=== PATIENT | female | born 1935 | race Caucasian/White ===

== ENCOUNTER 2023-12-17 06:34 | Inpatient (IN) | payer MEDICARE, SELFPAY ==
[2023-12-09 11:55] VITALS: BMI 22.4
[2023-12-09 13:00] LABS: % Basophils 1.3 % (0-2); % Eosinophils 2.9 % (0-6); % Immature Granulocytes 0.2 % (0-0.5); % Monocytes 9.9 % (1.7-9.3); % Neutrophils 64.7 % (42.2-75.2); Absolute Basophils 0.1 10^3/uL (0-0.2); Absolute Eosinophils 0.2 10^3/uL (0-0.7); Absolute Lymphocytes 1.2 10^3/uL (1.2-3.4); Absolute Monocytes 0.6 10^3/uL (0.1-0.6); Absolute Neutrophils 3.6 10^3/uL (1.4-6.5); Hematocrit 39.8 % (37.0-47.0); Hemoglobin 13.5 g/dL (12.0-16.0); Mean Corp Hgb Conc. 33.9 g/dL (33.0-37.0); Mean Corpuscular Hgb 32.7 pg (27.0-31.0); Mean Corpuscular Volume 96.4 fL (81.0-99.0); Mean Platelet Volume 12.5 fL (7.4-10.4); Nucleated Red Blood Cells % 0 %; Platelet Count 119 10^3/uL (130-400); Red Blood Cell Count 4.13 10^6/uL (4.20-5.40); Red Cell Dist. Width 12.4 % (11.5-14.5); White Blood Cell Count 5.6 10^3/uL (4.8-10.8)
[2023-12-09 13:02] LABS: Urine Albumin Negative (Neg - Trace); Urine Bilirubin Negative (Negative); Urine Character Very Cloudy (Clear); Urine Color Yellow; Urine Glucose Negative (Negative); Urine Ketone Negative (Negative); Urine Leukocyte Negative (Negative); Urine Nitrite Negative (Negative); Urine Occult Blood Negative (Negative); Urine Specific Gravity 1.015 (<1.030); Urine Urobilinogen Negative (Neg - 1+)
[2023-12-09 13:18] LABS: ALT (SGPT) 17 U/L (0-35); AST (SGOT) 23 U/L (14-36); Albumin 4.5 g/dl (3.5-5.0); Alkaline Phosphatase 85 U/L (38-126); Blood Urea Nitrogen 16 mg/dl (7-17); Calcium 9.6 mg/dl (8.4-10.2); Carbon Dioxide 31 mmol/L (22-30); Chloride 106 mmol/L (98-107); Direct Bilirubin 0.5 mg/dl (0.0-0.4); Estimated Creatinine Clearance 39 ml/min; Glucose 85 mg/dl (70-99); Sodium 140 mmol/L (135-145); Total Bilirubin 0.6 mg/dl (0.2-1.3); Total Protein 7.7 g/dl (6.3-8.2); eGFR > 60.00
--- NOTE | 2023-12-09 13:21 | CM ---
Met with Mrs. Paige and her daughter in [facility]. She states prior to admission she resides alone in an apartment at [facility]. She has an elevator to get to her apartment. She states she has been there for four
years. She states prior to admission she was independent with ambulation and adls. She states she does not have any DME in the home. She states she does not have a prescription plan and uses [facility]. Her daughter states she will stay
with her one night when she goes home. The discharge plan is to return home with her daughter staying with er a night and a home visit by the Cardiothoracic Transitional Care Nurse when medically stable.
We reviewed pre-op and post-op routines. We reviewed the shower instructions. She has the soap, written instructions and the TAVR Educational Booklet. We also reviewed restrictions including driving and lifting restrictions. We discussed a home
visit by the Cardiothoracic Transitional Care Nurse. She is agreeable to a home visit. The plan is for TAVR on , 12/17/23.
[2023-12-09 13:22] LABS: PT 13.2 Sec (11.4-14.6)
[2023-12-09 13:23] LABS: APTT 27.6 Sec (23.4-35.0)
[2023-12-09 13:27] LABS: NT-proBNP 360 pg/ml
[2023-12-09 14:04] LABS: Glycohemoglobin (HgbA1c) 5.6 % (4.0-5.6)
--- NOTE | 2023-12-09 14:43 | W.PN.UPDATE ---
Update Note
Progress Note Update
Patient seen and assessed in pre-admission testing. No new complaints. Reviewed pre-procedure instructions. Will remain on /Plavix and not stop prior to TAVR on 12/17. She will take her ASA and Plavix prior to her 5:30am arrival. She is aware she
will receive a call Thursday to go over any questions and confirm arrival time. Allowed for and answered questions.
[2023-12-17] VITALS (16 sets, daily range): BP systolic 99–139; BP diastolic 45–77; BMI 22.8
--- NOTE | 2023-12-17 09:28 | W.CVOR.SURPR ---
CVOR Surgeon Immed Pre Op
-
I have examined this patient prior to performance of the scheduled procedure.
The patient's condition is unchanged from the time of the dictated/written History and
Physical and the patient is able to undergo the scheduled procedure.
TF TAVR. Full Rescue.
[2023-12-17] MEDS: ZINACEF 1500 MG IV ×2 (10:00→13:54)
[2023-12-17] MEDS: STERILE WATER FOR INJECTION 16 ML IV ×2 (10:00→13:54)
[2023-12-17 11:00] LABS: ACT-LR - POC 279 Seconds (116-155)
--- NOTE | 2023-12-17 11:27 | W.PN.UPDATE ---
Update Note
Progress Note Update
Reviewed Ms. Paige with the heart team in the preTAVR SDM meeting and confirmed 23 mm S3 via left transfemoral access. Patient will resume aspirin and plavix post TAVR. LVEDP 31mmHg. #23 mm S3 (serial# [id number]) successfully deployed via left TF
access. Post implant MG 7 mmHg.
--- NOTE | 2023-12-17 11:37 | W.PN.CT.SURG ---
CT Surgery Operative Note
-
OPERATIVE REPORT
Preoperative Diagnosis: Severe aortic valve stenosis, symptomatic
Postoperative Diagnosis: Same
Procedure(s) Performed: Left trans femoral TAVR with a 23 mm Laughlin TAVR valve
Date of Procedure: 12/17/2023
Comorbidities:
1. Severe aortic stenosis, symptomatic
2. Acute on chronic congestive heart failure, LVEDP pre-TAVR was 31 mmHg
Cardiac Surgeon: Jono Sosa MD, MS
Parts Representative: Solange Schmidt MD
Anesthesia: Conscious Sedation and Local Analgesia
EBL: 100cc
Products: none
Implant: 23 mm Laughlin TAVR valve, SN: [id number]
Indication(s) for Procedures: 88-year-old female with symptomatic severe aortic stenosis. CT-TAVR protocol revealed acceptable anatomy for TAVR access and implantation.
Start time: 1021hrs
Deployment time: 1100hrs
End time: 1115hrs
Radiation Dose (mGy): 73.92
DAP (cm2.Gy): 10.0778
Fluoroscopy time (minutes): 10.7
Contrast volume (ml): 100
TAVR gradient (mmHg): 7mmHg
Protamine Dose: 30mg
Final Valve Positionin/10
Findings: Preoperative LVEF was 60% and was 60% following TAVR without inotropic support. Function was overall normal without regional wall motion abnormalities or dyskinesia. The aortic valve was well seated without detectable PVL and mean gradient
across the new valve was 7mmHg. following deployment of the valve there is a short period of pacing requirement as the patient was junctional rhythm in the 40s. She then improved to Wenckebach heart block and then regained sinus rhythm by the end
of the case. LVEDP measurements pre-TAVR were 31 to 33 mmHg indicating acute on chronic congestive heart failure and volume overload. Lasix will be given postoperatively in the ICU setting. There was successful placement of 23 mm TAVR valve
without acute complications.
Access:
1. Device -left common femoral artery, perclose x 2
2. Pigtail - right common femoral artery + 6Fr Angioseal
3. Transvenous Pacer - right common femoral vein
Description of Procedure: The patient was taken to the medical laboratory technicians. Their identity and procedure to be performed were verified and they were positioned supine on the medical laboratory technicians table. Induction via conscious sedation. The patient was then prepped and
draped from chin to thigh in a sterile fashion. A preoperative time-out was performed with all members of the team present. Arterial and venous access was performed using fluoroscopy and ultrasound guidance with micropuncture and Seldinger
technique. Two perclose devices were used on the device side followed by access to the aorta with a stiff wire to facilitate E-sheath placement. Heparin was given. A stiff straight wire and AL-1 catheter was used to cross the aortic valve. An LVEDP
was measured here. The stiff wire was exchanged for an extra stiff coiled tip wire. The valve was prepped and mounted on to the device carrier. An ACT of >250 was achieved. We verified x 3 that the valve was mounted in the correct orientation with
the skirt of the valve directed toward the tip of the device carrier. We advanced the device into the descending thoracic aorta where the valve was them mounted onto the balloon under fluoroscopy. The device was flexed and advanced over the arch
into the root and positioned across the aortic valve. Contrast fluoroscopy was used to visualize the prosthesis across the valve and to guide positioning. A pigtail catheter in the RCC as used as a guide. We aimed to have the bottom of the device
marker at the annular hinge point. The device sheath was pulled back. We performed a quick pre-deployment time out. The pacer was turned on and had capture. Blood pressure fell accordingly, angiography was done to verify the intended final placement
and the valve was deployed with 5 seconds of rapid pacing to nominal volume. The balloon was deflated and the pacer was turned off. We had recovery of vitals. The device carrier was unflexed and positioned back in the descending thoracic aorta. A
transthoracic echocardiogram was performed. The device was removed from the E-Sheath maintaining wire access followed by removal of the E-sheath as we cinched down the perclose devices. There was acceptable hemostasis. The pigtail was withdrawn into
the descending/abdominal and completion aortogram with runoff run-off angiography was performed. There was no stenosis or dissection of bilateral iliofemoral systems. There was acceptable hemostasis of bilateral groins and manual pressure was held
following wire removal. Low dose protamine was administered after checking another ACT.
All instrument, sponge, and needle counts were confirmed to be correct x 2 at the end of the operation. The patient was transferred to the cardiac intensive care unit in stable condition.
I, Dr. Jono Sosa, was present, scrubbed for, and performed all critical elements of this procedure.
Jono Sosa MD
Cardiothoracic Surgeon
[facility]
This operative dictation was created using the [email or web address] dictation system. Please excuse any grammatical, typographical, or 'sound alike' errors
--- NOTE | 2023-12-17 11:59 | ITS.CL.TAVR ---
Websphere Architect - TAVR Report
TAVR PRocedure
Procedure Report:
TRANSCATHETER AORTIC VALVE REPLACEMENT
Date of Procedure: December 17, 2023
Referring: Drs. Laron Coughlin and Jon Earl
Operators: Drs. Solange Schmidt and Jono Sosa
PROCEDURE PERFORMED:
1. Successful placement of 23 mm Laughlin Fay S3 aortic valve via left common femoral approach.
PREPROCEDURE NYHA CLASS: II
DESCRIPTION OF PROCEDURE: The patient was referred for assessment of severe symptomatic aortic stenosis and following a comprehensive evaluation it was felt that transcatheter aortic valve replacement (TAVR) would be the most appropriate treatment.
Informed consent was obtained prior to the procedure. A 'time-out' was called and the procedural plan was verbally confirmed by anesthesia, surgery, perfusion, and lab tester staff.
Arterial and venous access site were obtained in the right common femoral artery and vein using ultrasound guidance and micropuncture technique. 6 Fr. sheaths were inserted.
A 5 Fr. transvenous pacing wire was advanced to the right ventricle where excellent pacing thresholds were obtained.
A 5 Fr. pigtail catheter was then advanced to the proximal ascending aorta / right aortic cusp where angiography was performed in multiple angles to define the co-planar angle that was most appropriate valve deployment (FONTANA 4/ CAU 11).
Ultrasound guidance was then used to obtain arterial access in the left common femoral artery and a 8 fr. sheath was inserted. Angiography was performed and the arteriotomy site appeared appropriate for preclosure with two Perclose devices. An 8
Fr sheath was then inserted back into the common femoral artery over a J-tipped guidewire. An AL1 catheter was positioned in the proximal descending aorta. An Amplatz extra-stiff 0.035' J-tip wire was inserted to provide extra-support to
facilitate the Laughlin eSheath delivery. The 16 Fr. Laughlin eSheath was successfully advanced in the descending thoracic aorta.
An AL1 catheter was advanced through the Laughlin eSheath over a 0.035' J-tip guide wire. The AL1 catheter was positioned just above the aortic valve. A 0.035' Straight tip wire probed the aortic valve and crossed the stenotic leaflets. The AL1
was then advanced to the mid left ventricle. Invasive left ventricular end-diastolic pressure was noted to be elevated at 31 mmHg. An Amplatz Extra-stiff wire with a generous curved tip was then positioned in the left ventricular apex. A 23 mm
Laughlin Fay S3 valve was brought to the table and the orientation of the valve on the balloon delivery system was confirmed by all operators. The Fay S3 valve was advanced through the eSheath and into the proximal descending thoracic aorta.
The Fay S3 valve was centered on the delivery balloon and the entire system was retroflexed as it crossed the aortic arch. The Fay S3 delivery system was then advanced across the stenotic valve and the 23 mm Fay S3 valve was deployed
during rapid pacing. The valve deployment was uneventful. Transthoracic echocardiographic images post valve deployment revealed minimal aortic insufficiency with excellent position of the aortic prosthesis. Telemetry showed transient 2:1 AV block
post valve deployment however that resolved by the end of the case and she was in normal sinus rhythm.
The Laughlin balloon and delivery system were then removed. The Laughlin sheath was removed and the Perclose knots were advanced to the arteriotomy site resulting in excellent hemostasis.
Fluoro Time: 10.7 min, Dose: 73.9 mGy, DAP : 10.1 Gy.cm2
CONCLUSIONS:
1. Severe symptomatic aortic stenosis. Successful deployment of a 23 mm Fay S3 valve with minimal aortic insufficiency post procedure
2. Successful arteriotomy closure over the left common femoral artery with 2 Perclose devices. 6 Togolese Angio-Seal for successful hemostasis over the right common femoral artery.
3. Acute on chronic diastolic heart failure, LVEDP elevated at 31 mmHg.
Copy to: Laron Coughlin and Jon Earl
Solange Schmidt MD, [facility], [facility]
[2023-12-17] MEDS: LASIX 20 MG IV (12:20)
--- NOTE | 2023-12-17 14:00 | PTCARENOTE ---
received patient from recyclable products sorter recovery post TAVR. Drowsy but arousable and oriented. SR. HR 70s. EKG done. R groin sites changed by umer Dougherty. Bladder scanned for 1000. Straight cathed for 1000mLs. Pure wick applied. Pulses palpable. Diego
groin sites stable. RA. 97%. will continue to monitor. neice at bedside and updated.
--- NOTE | 2023-12-17 14:32 | CM ---
Addendum entered by CRISTA Singh 12/17/23 15:02:
CM met w/ patient's niece/POA at bedside. Introduced CM, explained role.
Reviewed DC plan.
Niece intends to stay with patient temporarily upon DC.
Will cont. to follow.
Original Note:
Patient in OR today for planned TAVR procedure.
Reviewed initial assessment. Pt. resides alone in apartment at [facility]. Functionally, patient is independent with ADLs, mobility without any AD.
Anticipated DC plan is for home w/ CT Transitional Care RN.
CM to follow.
--- NOTE | 2023-12-17 16:02 | PTCARENOTE ---
patient reported seeing 'spots' intermittently since her arrival to unit. ALBIN Oliver notified and at bedside assessing patient. Dr Sosa notified. Neuro exam done. Eye gtts ordered. no additional orders at this time.
[2023-12-17] MEDS: ZINACEF 750 MG IV (16:38)
[2023-12-17] MEDS: STERILE WATER FOR INJECTION 8.30000000000000071 ML IV (16:38)
[2023-12-17] MEDS: VIBRAMYCIN 100 MG PO (22:39)
[2023-12-17] MEDS: ATIVAN 0.5 MG PO (23:14)
--- NOTE | 2023-12-17 23:33 | PTCARENOTE ---
received patient at the change of shift. AAOx3. [place]BA. neuro intact. patient denies any floaters, 'spots' that she had post op. HR SR with a BBB 70s-80s. lopressor placed on hold per Crista TALAMANTES. bp stable. ambulating to the bathroom with a standby
assist. b/l groin sites intact, soft. palpable pulses/no edema. urinating in the bathroom. reviewed plan of care with the patient and verbalized understanding. call hinton in reach. calls appropriately.
[2023-12-18 03:22] VITALS: BP 131/53
[2023-12-18 03:54] LABS: Hematocrit 34.5 % (37.0-47.0); Hemoglobin 11.9 g/dL (12.0-16.0); Mean Corp Hgb Conc. 34.5 g/dL (33.0-37.0); Mean Corpuscular Hgb 32.9 pg (27.0-31.0); Mean Corpuscular Volume 95.3 fL (81.0-99.0); Red Blood Cell Count 3.62 10^6/uL (4.20-5.40); Red Cell Dist. Width 12.7 % (11.5-14.5); White Blood Cell Count 6.3 10^3/uL (4.8-10.8)
[2023-12-18 04:11] LABS: Blood Urea Nitrogen 17 mg/dl (7-17); Calcium 8.6 mg/dl (8.4-10.2); Carbon Dioxide 28 mmol/L (22-30); Chloride 108 mmol/L (98-107); Estimated Creatinine Clearance 33 ml/min; Glucose 93 mg/dl (70-99); Potassium 3.9 mmol/L (3.5-5.1); Sodium 138 mmol/L (135-145); eGFR > 60.00
--- NOTE | 2023-12-18 05:36 | W.PN.CT ---
Today's Communication / Plan
-
-pod #1
-new 1st degree and RBBB postop- both resolved - held Lopressor - ? restart
-brief SVT early post TAVR. In nsr 70s overnight. No mayela or pauses
-diuresed with 20 iv Lasix 12/17 (UO 900+)
-follow platelets - pending (chronic thrombocytopenia)
-Echo today
-current meds (ASA, Plavix, Lipitor)
-encourage IS, OOB, ambulate
-likely d/c soon
Assessment / Plan
-
- Severe symptomatic AV stenosis - s/p Left trans femoral TAVR with a 23 mm Laughlin TAVR valve on 12/17/23, pod #1
- Acute on chronic diastolic congestive heart failure, LVEDP pre-TAVR was 31 mmHg
- Short period of pacing requirement as the patient was in junctional rhythm in the 40s.� She then improved to Wenckebach heart block and then regained sinus rhythm by the end of the case.��
- Preop and postop LVEF was 60% without inotropic support, no regional wma or dyskinesia. The aortic valve was well seated without detectable PVL and mean gradient across the new valve was 7mmHg.�
- CAD - s/p RON to LAD on 11/11/23- on ASA and Plavix preop
- HTN/HLD
- Moderate MR
- OA R knee
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
- Chronic thrombocytopenia
- Acute postop 1st degree AVB and RBBB- both resolved
- Acute postop brief SVT 150s
Discussed patient care with: Nursing and Care Team
Subjective
-
Date of Service: December 17, 2023
Objective Data
-
Lab Results
12/09/23 12:07
12/09/23 12:07
PT 13.2 Sec (11.4-14.6) 12/09/23 12:07
INR 1.00 12/09/23 12:07
APTT 27.6 Sec (23.4-35.0) 12/09/23 12:07
Vital Signs
Vital Signs
Temp Pulse Resp BP Pulse Ox
98.0 F 77 16 103/59 95
12/17/23 20:00 12/17/23 20:45 12/17/23 20:00 12/17/23 20:03 12/17/23 20:00
CT Intake/Output/Weight
12/17/23 12/17/23 12/18/23
06:59 18:59 06:59
Output Total 900 / 900
Balance -900 / -900
SaO2: 95
Physical Exam
-
General: Awake and AOx3
Cardiovascular: Regular rate & rhythm, No Murmurs and No Rub
Respiratory: Clear
Incision: Other (groins are cdi, soft, nontender, no hematoma b/l)
Extremities: No Edema (2+ DP b/l)
Data Reviewed
-
Lab Results: Results Reviewed
Medications: Active Meds Reviewed
Chest X-Ray: Report Reviewed and Image Reviewed
ECG: Report Reviewed and Image Reviewed
--- NOTE | 2023-12-18 05:43 | PTCARENOTE ---
patient slept well overnight. SR 70s, resolved BBB. bp stable. neuro intact. b/l groins intact, palpable pulses. chest xray completed.
[2023-12-18 06:58] LABS: Mean Platelet Volume 12.1 fL (7.4-10.4); Platelet Count 97 10^3/uL (130-400)
--- NOTE | 2023-12-18 07:25 | W.PN.ANS.POP ---
Anesthesia Post Operative
- Anesthesia Post Op Note
Vital Signs Stable-See Nursing Note: Yes
Airway Patent: Yes
Adequate Pain Control: Yes
Change in Mental Status: No
Current Postoperative Nausea & Vomiting: No
Anesthesia Complications: No
General Anesthetic Recall: No
Unplanned Admission: No
Post Op Hydration Adequate: Yes
[2023-12-18 07:46] VITALS: BP 121/55
[2023-12-18 07:49] VITALS: BP 121/55
--- NOTE | 2023-12-18 07:49 | W.DCSUMMARY ---
Discharge Summary
Discharge Data
Date of Admission: 12/17/23
Date of Discharge: 12/18/23
Total time spent discharging patient (in min): 30
-
Pending Results: No
Hospital Course
Primary care physician:
Dr. Shilpa Leone MD.
Outpatient engineering technician parking:
Dr. Laron Coughlin MD.
Inpatient consultants:
[facility] Cardiology
Procedures:
1. �Left trans femoral transcatheter aortic valve with a 23 mm Laughlin valve
Primary Diagnosis:
1. �Severe aortic stenosis, symptomatic
2. Acute on chronic diastolic congestive heart failure, left ventricular end-diastolic pressure pre-transcatheter aortic valve replacement was 31 mmHg
Secondary Diagnoses:
1. Coronary artery disease status post drug-eluting stent to the left anterior descending coronary artery (11/11/23)
2. Chronic infection prosthetic right hip joint
3. Osteoarthritis of the right knee
4. Hyperlipidemia
5. Episodes of near syncope
6. Dyspnea upon exertion
HPI:
Patient is an extremely pleasant 88-year-old female with a history of severe symptomatic aortic stenosis. Patient has been experiencing episodes of near syncope and dyspnea upon exertion. She was seen as an outpatient in consultation by
Dr. Sheila MD. as well as the TAVR team. She was deemed an appropriate candidate to undergo the procedure described above.
Hospital course:
Patient presented to [facility] electively as an outpatient 12/17/2023 to undergo left transfemoral transcatheter aortic valve replacement with a #23 Laughlin valve. Patient tolerated procedure well. Procedure was performed under conscious
sedation. She was transported from the Manager Flight to the interventional unit where she underwent her postoperative recovery. Patient had no complications postoperatively. She did not need any arterial or venous sheaths or temporary pacing wires.
Postoperative EKG revealed normal sinus rhythm (65 bpm) with a new right bundle branch block. Beta-blockade was held that evening. She was diuresed with 20 mg of IV Lasix due to an elevated left ventricular end-diastolic pressure status post
procedure.
Postoperative day #1 she had no complications overnight. She was ordered to continue aspirin and Plavix. She was seen on morning rounds by attending physician. Groins and abdomen were soft and nontender to palpation. Morning EKG right bundle
branch block resolved. She was sinus rhythm at 79 bpm. Postop day #1 echocardiogram revealed a left ventricular ejection fraction of 70%. Aortic valve revealed normal functioning 23 mm Laughlin JOSIE 3 transcatheter aortic valve with peak
gradient of 18 mmHg, and mean gradient of 9 mmHg. No aortic insufficiency was visualized. When compared to her prior echo on 12/17/23 no significant change was found. Patient's beta-melissa dose was decreased from Lopressor 25 mg twice daily to
12.5 mg twice daily per cardiology. She will be sent home with a rhythm star heart monitor per request of Cardiology/CT Surgery. Patient was medically cleared for discharge to home.
Home medication changes:
Take Acetaminophen 650 mg Q6H PRN for fever and pain control.
Stop Metoprolol 25 mg BID per Cardiology
Start Metoprolol 12.5 mg BID at lower dose per Cardiology
Please resume all other home medications as previously taking.
Please cc copy to the following providers:
Primary care physician Dr. Shilpa Leone MD.
Cardiology Dr. Laron Coughlin MD.
Discharge Plan
-
Patient Disposition: Home (Routine Discharge)
Discharge Diagnosis/Procedures: TF-TAVR
Condition: Fair
Diet: 2 Gram Sodium
Activity: As tolerated
Driving Restrictions: No driving for 1 week
Bathing Restrictions: OK to Shower
Others Tests: Please call Dr. Coughlin' office to schedule a follow up echocardiogram for 30 days after your TAVR.
Other Services: Cardiac Rehab
Wound Care: Please do not apply lotions, creams or powders to groin areas. Please monitor groins for increased pain, swelling, redness or drainage. Call your doctor if any occur.
Specialty Instructions: Weigh Daily- Call MD for wt gain/loss 3 lbs overnight/5 lbs in 1 week
Referrals:
CT Transitional Care Nurse [Outside] - in one to two days (The Cardiothoracic Transitional Care Nurse will call you to set up a visit in 1-2 days.)
Laron Coughlin MD [Active] - 01/07/24 11:15 am
Shilpa Leone DO [Family Provider] -
Prescriptions:
New
acetaminophen 325 mg Tablet
650 mg PO Q4HPRN PRN (Reason: DURAN, mild pain, or fever >101F) Qty: 0 0RF
Rx Instructions:
Please purchase over the counter
metoprolol tartrate 25 mg Tablet
12.5 mg PO BID Qty: 30 1RF
Continued
atorvastatin 10 mg Tablet
10 mg PO DAILY
calcium carbonate [Calcium 600] 600 mg calcium (1,500 mg) Tablet
600 mg PO BID
ascorbic acid (vitamin C) [Vitamin C] 500 mg Tablet
500 mg PO DAILY
aspirin 81 mg Tablet,Chewable
81 mg PO DAILY
doxycycline hyclate 100 mg Tablet
100 mg PO HS
clopidogrel 75 mg Tablet
75 mg PO DAILY Qty: 90 5RF
lorazepam 1 mg Tablet
0.5 mg PO HS PRN (Reason: sleep)
Discontinued
metoprolol tartrate 25 mg Tablet
25 mg PO BID
Discharge Orders:
Discharge Patient (As Directed); Ordered 12/18/23
Ordered By: Olga Hernandez
Care Plan Goals
Care Plan Goals:
Problem: Readiness for enhanced knowledge related to diagnosis and treatment plan
Goal: Understand your diagnosis and treatment plan needs, including medications if applicable.
Instructions: Know your diagnosis, underlying causes and treatment plan options, including medications if applicable. Consult with your health care team to learn about your diagnosis and treatment plan, including medications if applicable.
[2023-12-18] MEDS: LIPITOR 10 MG PO (08:22)
[2023-12-18] MEDS: LOW STRENGTH ASPIRIN 81 MG PO (08:22)
[2023-12-18] MEDS: PLAVIX 75 MG PO (08:22)
--- NOTE | 2023-12-18 09:20 | W.PN.CARDCBS ---
Addendum entered and electronically signed by Sea Parnell MD 12/18/23 10:42:
88-year-old woman with history of severe aortic stenosis status post 23 mm Laughlin FAY 3 TAVR on 12/17/2023, had transient first-degree AV block and right bundle postop with junctional rhythm, mean gradient was 7 mmHg post implant. Metoprolol
currently on hold.
PMH: CAD, LAD RON November 2023, hypertension hyperlipidemia, moderate MR, osteoarthritis, chronic right hip infection of prosthesis, history of SVT
PSH/FH/SH: Reviewed
Allergies reviewed
Meds reviewed
121/55, pulse 76, resp rate 18, afebrile
Head neck exam unremarkable, lungs are clear, very soft systolic murmur, abdomen benign, puncture sites intact, extremities without edema, neuro nonfocal, pulses intact
Hemoglobin 11.5, platelets 97, BUN/creatinine 17 and 0.8
EKG sinus rhythm, probable LVH
Chest x-ray breast implants, atherosclerosis, TAVR,
Impression:
Status post TAVR
Junctional rhythm, right bundle, first-degree AV block
Brief runs atrial tachycardia on monitor post procedure
Recent LAD PCI
Hypertension/hyperlipidemia
Moderate mitral regurgitation
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
Plan:
Overall she looks well despite transient rhythm issues yesterday
Restart metoprolol tartrate 12.5 twice daily
Outpatient monitor
Okay for discharge from our standpoint.
Thrombocytopenia, platelet count 96
Original Note:
Today's Communication / Plan
-
Echo pending if stable d/c later today
Resume Lopressor 12.5 mg BID (lower dose)
Will go home with [employer] real time monitor
Resume ASA, Plavix and Atorvastatin
Outpt cardiology follow arranged
Impression / Plan
-
Primary Care Physician: Dr. Shilpa Leone
Primary Instrumentation And Controls Designer: Dr. Laron Coughlin and Dr. Earl
Impression:
Severe symptomatic aortic stenosis
s/p 23 mm Laughlin Fay S3 aortic valve via left common femoral approach 12/17/2023
CAD
s/p LAD with 2.5 x 28 mm Xience drug-eluting stent 11/11/23
Hyperlipidemia
OA post THR with chronic infection on antibiotics
Echo 12/17/2023:Preop and postop LVEF was 65-70%, mild cLVH. Laughlin #23 mmhg TAVR well seated without paravalvular leak and peak/mean gradient across the new valve was 14/7mmHg.�
Echo 12/18/2023: Pending
Plan:
-Severe symptomatic aortic stenosis now s/p 23 mm Laughlin Fay S3 aortic valve via left common femoral approach 12/17/2023
-Patient sitting up in chair. Reports that she is feeling well. Denies chest pain, shortness of breath, dizziness, lightheadedness or palpitations.
-Post TAVR echocardiogram 12/17/2023 with well-seated aortic valve without paravalvular leak. Peak/mean gradient 14/11 mmHg. Repeat echo 12/18/2023 pending
-Short period of temporary pacing during procedure with junctional rhythm in the 40s. 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
-Patient brief NSVT 3 beats early post TAVR and 13 beats of Atach early evening 12/17/2023.Now arrhythmias overnight and currently in Sinus rhythm without bradycardia or pauses. Restart Lopressor 12.5 mg BID (lower dose) and send home with Rhythm
Star real time monitor.
-Post TAVR ECG 12/28/2023 normal sinus rhythm with nonspecific T wave abnormality. Stable
-Elevated LVEDP pre-TAVR was 31 mmHg. Patient was provided 1 dose of IV Lasix 20 mg 12/17/2023 with good urine output. Patient currently denies edema, orthopnea or PND. Appears euvolemic.
-Coronary artery disease status post LAD RON November 2023. Continue aspirin Plavix, statin.
-Post TAVR hemoglobin stable 11.9. Continue aspirin and Plavix given recent drug-eluting stent placement November 2022
HPI DATA:
�88-year-old white female with known critical aortic stenosis with a mean gradient of 58 mmHg. She has been having some dizzy, subtle intermittent dizziness, but no chest pain. She was found to have
significant LAD stenosis which was successfully stented with one drug-eluting stent on 11/11/2022. Now presents back 12/16/2023 for TAVR
Progress Note - Instrumentation And Controls Designer
Subjective
Date of Service: December 18, 2023
Patient sitting up in chair. Reports that she is feeling well. Denies chest pain, shortness of breath, dizziness, lightheadedness or palpitations.
Objective
Labs:
12/18/23 03:21
12/18/23 03:21
Labs
Hgb 11.9 g/dL (12.0-16.0) L 12/18/23 03:21
Hct 34.5 % (37.0-47.0) L 12/18/23 03:21
Plt Count 97 10^3/uL (130-400) L 12/18/23 03:21
PT 13.2 Sec (11.4-14.6) 12/09/23 12:07
INR 1.00 12/09/23 12:07
APTT 27.6 Sec (23.4-35.0) 12/09/23 12:07
Sodium 138 mmol/L (135-145) 12/18/23 03:21
Potassium 3.9 mmol/L (3.5-5.1) 12/18/23 03:21
BUN 17 mg/dl (7-17) 12/18/23 03:21
Creatinine 0.8 mg/dL (0.6-1.0) 12/18/23 03:21
Glucose 93 mg/dl (70-99) 12/18/23 03:21
Vital Signs and I&O:
Vital Signs
Temp Pulse Resp BP Pulse Ox
98.2 F 75 18 121/55 96
12/18/23 07:49 12/18/23 07:49 12/18/23 07:49 12/18/23 07:49 12/18/23 07:49
Vital Signs
Temp Pulse Resp BP Pulse Ox
98.2 F 75 18 121/55 96
12/18/23 07:49 12/18/23 07:49 12/18/23 07:49 12/18/23 07:49 12/18/23 07:49
Intake & Output
12/16/23 12/17/23 12/18/23 12/19/23
06:59 06:59 06:59 06:59
Intake Total 400 / 400
Output Total 900 / 900
Balance -500 / -500
Physical Exam
Physical Exam
GEN: No distress, awake, Ox3, sitting up in chair
HEENT: supple, anicteric, mmm
LUNGS: CTA, no wheezes/rales
CV: Reg, S1/S2, 1/6 syst murmur, no rubs or gallops
ABD: soft, BS+, NT/ND
EXT: No edema, clubbing or cyanosis
NEURO: Gross non-focal
SKIN: No rash, warm, dry, pink
[2023-12-18] MEDS: LOPRESSOR 12.5 MG PO (10:53)
--- NOTE | 2023-12-18 10:53 | CM ---
CM following for DC planning needs.
Met w/ patient at bedside. Pt. reports that she is feeling well and is hopeful for DC to home today.
Plan is for home w/ [facility] Transitional [facility] RN. Love planning to stay w/ patient for a few nights @ DC.
CM to cont. to follow.
--- NOTE | 2023-12-18 11:09 | PTCARENOTE ---
patient will be discharged to home today. Dr. Ladonna Comer in room , as ordered placed monitor on patient before discharge.
--- NOTE | 2023-12-18 11:40 | W.PN.UPDATE ---
Update Note
Progress Note Update
[employer] monitor applied to patient on discharge. 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 Allowed for and answered questions.
--- NOTE | 2023-12-18 11:56 | PTCARENOTE ---
D/C instructions given to patient and niece, both verbalizes understanding. INT D/C'd telemetry D/C'd, personal belongings packed and sent home with patient. D/C to home via wc accompanied by staff.
== END 2023-12-18 12:18 | disposition home or self-care (01) | DRG 266 ==
LOC: IVU 06:34
PROVIDERS: Physician Assistant Surgical; ADMITTING PHYSICIAN Thoracic Surgery (Cardiothoracic Vascular Surgery); FAMILY PHYSICIAN Family Medicine; OTHER PHYSICIAN Internal Medicine Interventional Cardiology
PROC: 02RF38Z Replacement of Aortic Valve with Zooplastic Tissue, Percutaneous Approach (ICD-10-PCS; 2023-12-17)
DX: I08.0 Rheumatic disorders of both mitral and aortic valves (principal); Z00.6 Encounter for examination for normal comparison and control in clinical research program; I50.33 Acute on chronic diastolic (congestive) heart failure; I47.10 Supraventricular tachycardia, unspecified; I44.0 Atrioventricular block, first degree; I45.10 Unspecified right bundle-branch block; I25.10 Atherosclerotic heart disease of native coronary artery without angina pectoris; M17.11 Unilateral primary osteoarthritis, right knee; I11.0 Hypertensive heart disease with heart failure; E78.5 Hyperlipidemia, unspecified; D69.6 Thrombocytopenia, unspecified; T84.51XD Infection and inflammatory reaction due to internal right hip prosthesis, subsequent encounter; Y79.2 Prosthetic and other implants, materials and accessory orthopedic devices associated with adverse incidents; Z95.5 Presence of coronary angioplasty implant and graft; Z79.02 Long term (current) use of antithrombotics/antiplatelets; Z79.82 Long term (current) use of aspirin
CPT/HCPCS: 93308; 33361; 36415; 71045; 71046; 76937; 80048; 80053; 81003; 82248; 83036; 83880; 85025; 85027; 85347; 85610; 85730; 86850; 86870; 86900; 86901; 86905; 86920; 86922; 87070; 93005; 93306; 93321; 93325; C1760; C1769; C1894; Q9967